=== PATIENT | female | born 1950 | race Caucasian/White ===

== ENCOUNTER → 2016-05-18 | Outpatient (CLI) | payer MEDICARE, OTHER ==
[~2016-05-18] MED LIST: ABILIFY 10MG TA10 MG PO; ABILIFY5 MG PO; ASPIRIN 81M81 MG/TA2 PO; BIOTIN FORTE3 MG PO; BRILINTA90 MG PO; CALCIUM CITRATE PO; CALCIUM CITRATE1 TA7 PO; DALIRESP500 MCG PO; DESYREL 50MG50 MG PO; DESYREL DIVIDO150 M1 PO; EFFEXOR 75M75 MG/TAB PO; FOSAMAX 70MG TA70 MG PO; LORTAB 5/500 501 TAB PO; MASON NATURAL2000 IU PO; MULTI VITAMINS1 TAB PO; NORCO 325 MG-51 TAB PO; PEGASYS180 MCG/0. MR; POTASSIUM595 MG PO; PRENATAL VITAMI1 TAB PO; RESTORIL 77.5 MG/CAP PO; RIBAPAK PO; SAVELLA100 MG PO; SAVELLA50 MG PO; STIOLTO RESPIMAT4 GM IH; TOPROL XL 25MG25 MG PO; VALIUM 5MG T5 MG/TAB PO; VICTRELIS200 MG PO; VITAMIN B COMPL1 T16 PO; VITAMIN D31000 IU PO
== END ==
LOC: BHSO 13:52
DX: F33.42 Major depressive disorder, recurrent, in full remission (principal)

== ENCOUNTER → 2016-08-14 | Outpatient (CLI) | payer MEDICARE, OTHER | LOC: BHSO 13:51 | DX: F33.42 Major depressive disorder, recurrent, in full remission (principal) ==

== ENCOUNTER → 2016-12-03 | Outpatient (CLI) | payer MEDICARE, OTHER | LOC: BHSO 14:40 | DX: F33.41 Major depressive disorder, recurrent, in partial remission (principal) ==

== ENCOUNTER → 2017-02-10 | Outpatient (CLI) | payer MEDICARE, OTHER | LOC: BHSO 13:59 | DX: F33.42 Major depressive disorder, recurrent, in full remission (principal) ==

== ENCOUNTER → 2017-05-07 | Outpatient (CLI) | payer MEDICARE, OTHER | LOC: BHSO 13:53 | DX: F33.42 Major depressive disorder, recurrent, in full remission (principal) | CPT/HCPCS: G0463 ==

== ENCOUNTER → 2017-08-20 | Outpatient (CLI) | payer MEDICARE, OTHER | LOC: BHSO 14:16 | DX: F33.41 Major depressive disorder, recurrent, in partial remission (principal) | CPT/HCPCS: G0463 ==

== ENCOUNTER → 2017-12-03 | Outpatient (CLI) | payer MEDICARE, OTHER | LOC: BHSO 15:10 | DX: F33.41 Major depressive disorder, recurrent, in partial remission (principal) | CPT/HCPCS: G0463 ==

== ENCOUNTER 2018-03-23 11:38 | Day surgery (SDC) | payer MEDICARE, OTHER ==
[~2018-03-23] VITALS: Ht 154.9 cm; Wt 43.0 kg
[2018-03-23] VITALS (7 sets, daily range): BP systolic 119–143; BP diastolic 63–69; PULSE 63–66; TEMP 97.2–98.1
[2018-03-23 12:29] LABS: ALBUMIN 4.5 gm/dL (3.5-5.0); CREATININE, serum 0.63 mg/dL (0.52-1.25); POTASSIUM 4.5 mmol/L (3.4-5.0)
[2018-03-23] MEDS ORDERED: LIPITOR20 MG PO (12:38)
[2018-03-23] MEDS ORDERED: ALLEGRA 180MG180 MG PO (12:41)
[2018-03-23] MEDS ORDERED: FOSAMAX 70MG TA70 MG PO (12:43)
[2018-03-23] MEDS ORDERED: OSCAL 500 TAB500 MG PO (12:44)
[2018-03-23] MEDS ORDERED: NORCO 325 MG-51 TAB PO (17:15)
== END 2018-03-23 19:49 | disposition home or self-care (01) ==
LOC: SDCO 11:38
PROVIDERS: Surgery
DX: C01 Malignant neoplasm of base of tongue (principal); C77.0 Secondary and unspecified malignant neoplasm of lymph nodes of head, face and neck; Z79.02 Long term (current) use of antithrombotics/antiplatelets; M81.0 Age-related osteoporosis without current pathological fracture; Z95.828 Presence of other vascular implants and grafts; Z79.82 Long term (current) use of aspirin; Z79.899 Other long term (current) drug therapy; J44.9 Chronic obstructive pulmonary disease, unspecified; F17.210 Nicotine dependence, cigarettes, uncomplicated; I25.10 Atherosclerotic heart disease of native coronary artery without angina pectoris
CPT/HCPCS: C1788; J0690; J2405; J2704; J7120

== ENCOUNTER → 2018-05-18 | Outpatient (CLI) | payer MEDICARE, OTHER ==
[~2018-05-18] VITALS: Ht 154.9 cm; Wt 41.3 kg
[~2018-05-18] MED LIST changes: +ALLEGRA 180MG180 MG PO; +LIPITOR20 MG PO; +OSCAL 500 TAB500 MG PO
== END ==
LOC: SUN.CLI 10:56
DX: E66.9 Obesity, unspecified (principal); Z71.3 Dietary counseling and surveillance

== ENCOUNTER → 2018-06-22 | Outpatient (CLI) | payer MEDICARE, OTHER | LOC: BHSO 10:33 | DX: F33.1 Major depressive disorder, recurrent, moderate (principal) | CPT/HCPCS: G0463 ==

== ENCOUNTER → 2018-08-25 | Outpatient (CLI) | payer MEDICARE, OTHER | LOC: BHSO 14:31 | DX: F33.41 Major depressive disorder, recurrent, in partial remission (principal) | CPT/HCPCS: G0463 ==

== ENCOUNTER → 2018-12-06 | Outpatient (CLI) | payer MEDICARE, OTHER | LOC: BHSO 13:50 | DX: F33.41 Major depressive disorder, recurrent, in partial remission (principal) | CPT/HCPCS: G0463 ==

== ENCOUNTER 2019-01-05 11:25 | Day surgery (SDC) | payer MEDICARE, OTHER ==
[2019-01-05] VITALS (14 sets, daily range): BP systolic 103–126; BP diastolic 61–79; PULSE 81–96; TEMP 98.5–98.6
[~2019-01-05] VITALS: Ht 154.9 cm; Wt 39.9 kg
[~2019-01-05 11:25] MED LIST changes: -SAVELLA100 MG PO
[2019-01-05 12:22] LABS: HEMATOCRIT 39.2 % (37.0-47.0); HEMOGLOBIN 12.9 g/dl (12.5-16.0); MEAN CELL VOLUME 98 fl (80.0-100.0); MEAN CORPUSCULAR HEMOGLOBIN 32 pg (27.0-31.0); MEAN CORPUSCULAR HGB CONC 33 g/dl (33.0-37.0); MEAN PLATELET VOLUME 10.4 fl (7.4-10.4); PLATELET COUNT 198 K/mm3 (130-400); RED BLOOD COUNT 4.01 M/mm3 (4.10-5.30); REDCELL DISTRIBUTION WIDTH-CV 12.5 % (11.5-14.5)
[2019-01-05] MEDS ORDERED: SYNTHROID 0.0.025 MG PO (12:31)
[2019-01-05] MEDS ORDERED: NICODERM C7 MG/PATCH TD (12:32)
[2019-01-05] MEDS ORDERED: NITROSTAT0.4 MG/TAB SL (12:32)
[2019-01-05] MEDS ORDERED: BIOTIN800 MCG PO (12:34)
[2019-01-05 12:43] LABS: CALCIUM 10.2 mg/dL (8.4-10.2); CREATININE, serum 0.55 (0.52-1.25); POTASSIUM 4.5 mmol/L (3.4-5.0)
--- NOTE | 2019-01-05 14:22 | NUR ---
SEE MERGE DOCUMENTATION FOR MEDICATION ADMINISTRATION TIMES AND INTRA/POST PROCEDURE SEDATION ASSESSMENTS. PT TOOK 81 ASA AND 90 BRILINTA THIS AM; NO OTHER DOSE ASA ORDERED PER MD.
--- NOTE | 2019-01-05 15:34 | NUR ---
Pt is back from laboratory specialist, report received from Tavo LISA. Pt is awake and alert, sattign 98% on room air, rt groin site covered with clean and dry gauze dressing, dp pulses palpable and equal, rle pink and warm. PT aware of plan for 6 hr bedrest. at bs at time of report, he has left for a while due to long bed rest. Pt's necklaces were actually given to her prior to procedure, these were placed on pt's neck prior to her husbands departure.
--- NOTE | 2019-01-05 15:53 | NUR ---
Pt has been awake, without any complaints watching tv, cms remains intact to rle, no hematoma or bleeding at rt femoral site/ Pt was able to take a few sips of diet coke with no problem, ice cream ordered for patient.
--- NOTE | 2019-01-05 16:59 | NUR ---
Pt resting comfortably, sleeping intermittently, has been able to eat some ice cream with no problem. groin site free from hematoma, bleeding, dressing is clean and dry. pulses intact.
--- NOTE | 2019-01-05 17:53 | NUR ---
Report to Vanesa Kelly.Pt on bedrest for six hours post heart cath.
--- NOTE | 2019-01-05 21:30 | NUR ---
Assisted patient with gathering belongings, confirmed that they had their discharge paperwork provided by previous [facility] RN, and this RN removed their IV, PT tolerated well. Patient dressed herself. This RN walked the patient and her to the visitor entrance and to their vehicle.
== END 2019-01-05 21:30 | disposition home or self-care (01) ==
LOC: COL.CAR 11:25
PROVIDERS: Internal Medicine Cardiovascular Disease
DX: I25.10 Atherosclerotic heart disease of native coronary artery without angina pectoris (principal); I73.9 Peripheral vascular disease, unspecified; E78.5 Hyperlipidemia, unspecified; J44.9 Chronic obstructive pulmonary disease, unspecified; B19.20 Unspecified viral hepatitis C without hepatic coma; M81.0 Age-related osteoporosis without current pathological fracture; F17.210 Nicotine dependence, cigarettes, uncomplicated; I08.1 Rheumatic disorders of both mitral and tricuspid valves; Z95.5 Presence of coronary angioplasty implant and graft; Z88.1 Allergy status to other antibiotic agents; Z80.9 Family history of malignant neoplasm, unspecified
CPT/HCPCS: C1760; C1769; C1894; J2250; J3010; Q9967

== ENCOUNTER → 2019-03-07 | Outpatient (CLI) | payer MEDICARE, OTHER ==
[~2019-03-07] MED LIST changes: +BIOTIN800 MCG PO; +NICODERM C7 MG/PATCH TD; +NITROSTAT0.4 MG/TAB SL; +SYNTHROID 0.0.025 MG PO
== END ==
LOC: BHSO 14:19
DX: F33.41 Major depressive disorder, recurrent, in partial remission (principal)
CPT/HCPCS: G0463

== ENCOUNTER 2019-04-04 06:44 | Day surgery (SDC) | payer MEDICARE, OTHER ==
[~2019-04-04] VITALS: Ht 154.9 cm; Wt 41.1 kg
[2019-04-04 07:20] VITALS: BP 117/64; PULSE 66; TEMP 97.8
--- NOTE | 2019-04-04 08:30 | NUR ---
Patient given dismissal instructions on PEG tube cares and instructed to call the office for any questions or concerns. Patient dismissed to home driven by spouse with instructions in hand. Patient ambulatory to the front door by self.
--- NOTE | 2019-04-04 08:59 | NUR ---
0819 Dr. Copeland at the patient's bedside discussing the procedure with the patient and her . They both verbalized understanding and have no questions for the doctor at this time. 0821 End cap to indwelling PEG tube was changed out at this time. A single port end cap was placed on the patient's PEG tube and the patient was given the dual port end cap in a specimen cup to take home for future use per Dr. Copeland. 0823 The procedure is complete and the patient appeared to tolerate it well. 0824 Dr. Copeland spoke with the patient and her regarding use of the new end cap and answered any questions before leaving the room.
== END 2019-04-04 08:30 | disposition home or self-care (01) ==
LOC: SDCO 06:44 → EDSTATUS 08:00 → SDCO 08:30
DX: K94.23 Gastrostomy malfunction (principal); M81.0 Age-related osteoporosis without current pathological fracture; Z96.649 Presence of unspecified artificial hip joint; F17.210 Nicotine dependence, cigarettes, uncomplicated; Z80.0 Family history of malignant neoplasm of digestive organs; Z79.82 Long term (current) use of aspirin; Z85.828 Personal history of other malignant neoplasm of skin; Z80.9 Family history of malignant neoplasm, unspecified; Z83.3 Family history of diabetes mellitus

== ENCOUNTER → 2019-05-09 | Outpatient (CLI) | payer MEDICARE, OTHER | LOC: BHSO 14:16 | DX: F33.41 Major depressive disorder, recurrent, in partial remission (principal) | CPT/HCPCS: G0463 ==

== ENCOUNTER → 2019-08-08 | Outpatient (CLI) | payer MEDICARE, OTHER | LOC: BHSO 13:59 | DX: F41.1 Generalized anxiety disorder (principal) | CPT/HCPCS: G0463 ==

== ENCOUNTER → 2019-09-28 | Outpatient (CLI) | payer MEDICARE, OTHER | LOC: BHSO 15:41 | DX: F33.1 Major depressive disorder, recurrent, moderate (principal) | CPT/HCPCS: G0463 ==

== ENCOUNTER → 2019-11-17 | Outpatient (CLI) | payer MEDICARE, OTHER | LOC: BHSO 14:00 | DX: F33.41 Major depressive disorder, recurrent, in partial remission (principal) | CPT/HCPCS: G0463 ==

== ENCOUNTER 2020-04-22 12:25 | Emergency (ER) | payer MEDICARE, OTHER ==
[~2020-04-22] VITALS: Ht 154.9 cm; Wt 43.2 kg
[2020-04-22 13:04] VITALS: BP 118/67; PULSE 78; TEMP 97.8
== END 2020-04-22 13:06 | disposition home or self-care (01) ==
LOC: COL.ER 12:25
DX: K94.23 Gastrostomy malfunction (principal); I25.10 Atherosclerotic heart disease of native coronary artery without angina pectoris; F17.210 Nicotine dependence, cigarettes, uncomplicated; Z79.82 Long term (current) use of aspirin; Z79.02 Long term (current) use of antithrombotics/antiplatelets; Z88.1 Allergy status to other antibiotic agents
CPT/HCPCS: 8609; B4087

== ENCOUNTER → 2021-01-07 | Outpatient (CLI) | payer MEDICARE, OTHER ==
[~2021-01-07] VITALS: Ht 154.9 cm; Wt 54.5 kg
[2021-01-07 16:20] VITALS: TEMP 98.2
[2021-01-07 16:22] VITALS: PULSE 77
== END ==
LOC: COL.ER 16:06
DX: K94.23 Gastrostomy malfunction (principal)
CPT/HCPCS: 32680

== ENCOUNTER → 2021-01-29 | Outpatient (CLI) | payer MEDICARE, OTHER | LOC: COL.RAD 11:14 | DX: C01 Malignant neoplasm of base of tongue (principal) | CPT/HCPCS: Q9967 ==